=== PATIENT | male | born 1970 | race Caucasian/White ===

== ENCOUNTER 2017-03-29 19:52 | Emergency (ER) | payer OTHER ==
[2017-03-29] MEDS ORDERED: Amoxicillin 875 MG Tab PO ONE (20:15)
[2017-03-29] MEDS ORDERED: methylPREDNISolone Sodium Succinate 125 MG/2 ML SDV IM ONE (20:16)
--- NOTE | 2017-03-29 20:22 | EDM.PDOC ---
ED HPI GENERAL MEDICAL PROBLEM - General Chief Complaint: ENT Problem Stated Complaint: THROAT Time Seen by Provider: 03/29/17 20:12 Source of Information: Reports: Patient History Limitations: Reports: No Limitations - History of Present Illness INITIAL COMMENTS - FREE TEXT/NARRATIVE: present to ER with feeling of swelling to his uvula causing him to gag. Has had a irritated cough for the last week. woke up this morning with the symptoms. denies sore throat, fever, chills, sinus congestion, headache. denies eating any different foods or difficulty breathing or swallowing. Onset: Today Improves with: Reports: None Worsens with: Reports: None Associated Symptoms: Reports: No Other Symptoms Throat Pain Score (Numeric/FACES): 2 - Related Data Allergies Allergy/AdvReac Type Severity Reaction Status Date / Time No Known Allergies Allergy Verified 03/29/17 20:00 Home Meds: Home Meds Hydrochlorothiazide [Hydrochlorothiazide] 25 mg PO DAILY 09/04/15 [History] Levothyroxine [Synthroid] 50 mcg PO ACBREAKFAST 09/04/15 [History] Metoprolol Succinate [Toprol XL] 100 mg PO DAILY 09/04/15 [History] Omeprazole [Prilosec] 40 mg PO DAILY 09/04/15 [History] Rosuvastatin [Crestor] 20 mg PO DAILY 09/04/15 [History] metFORMIN [Glucophage] 1,000 mg BID 09/04/15 [History] ALPRAZolam [Xanax] 0.5 mg PO ASDIRECTED PRN 03/29/17 [History] DULoxetine [Cymbalta] 90 mg PO DAILY 03/29/17 [History] PARoxetine HCl [Paxil] 10 mg PO DAILY 03/29/17 [History] Past Medical History Cardiovascular History: Reports: High Cholesterol, Hypertension Psychiatric History: Reports: Anxiety, Depression Endocrine/Metabolic History: Reports: Hypothyroidism, Other (See Below) Other Endocrine/Metabolic History: prediabetic Social & Family History - Tobacco Use Smoking Status *Q: Never Smoker - Recreational Drug Use Recreational Drug Use: No ED ROS ENT - Review of Systems Review Of Systems: ROS reveals no pertinent complaints other than HPI. ED EXAM, ENT - Physical Exam Exam: See Below Exam Limited By: No Limitations General Appearance: Alert, WD/WN, No Apparent Distress Ears: Normal External Exam, Normal Canal, Normal TMs Nose: Normal Inspection, Normal Mucousa, No Blood Mouth/Throat: Pharyngeal Erythema, Uvular Edema Head: Atraumatic, Normocephalic Neck: Normal Inspection, Supple, Non-Tender Respiratory/Chest: No Respiratory Distress, Lungs Clear, Normal Breath Sounds Cardiovascular: Regular Rate, Rhythm Skin: Warm, Dry, No Rash Course - Vital Signs Last Recorded V/S: Last Vital Signs Temp 37.1 C 03/29/17 20:08 Pulse 87 03/29/17 20:08 Resp 16 03/29/17 20:08 BP 149/89 H 03/29/17 20:08 Pulse Ox 99 03/29/17 20:08 - Orders/Labs/Meds Orders: Active Orders 24 hr Category Date Time Status Amoxicillin [Amoxil] Med 03/29/17 20:15 Once 875 mg PO ONETIME ONE methylPREDNISolone Sod Succ [Solu-MEDROL] Med 03/29/17 20:16 Once 125 mg IM ONETIME ONE Departure - Departure Time of Disposition: 20:45 Disposition: Home, Self-Care 01 Condition: Good Clinical Impression: Uvular edema Acute pharyngitis Qualifiers: Pharyngitis/tonsillitis etiology: unspecified etiology Qualified Code(s): J02.9 - Acute pharyngitis, unspecified - Discharge Information Forms: ED Department Discharge - Problem List & Annotations (1) Uvular edema SNOMED Code(s): 789224230 Code(s): K13.79 - OTHER LESIONS OF ORAL MUCOSA Status: Acute Priority: Medium (2) Acute pharyngitis SNOMED Code(s): 689684764 Code(s): J02.9 - ACUTE PHARYNGITIS, UNSPECIFIED Status: Acute Priority: Medium Qualifiers: Pharyngitis/tonsillitis etiology: unspecified etiology Qualified Code(s): J02.9 - Acute pharyngitis, unspecified - My Orders Last 24 Hours: My Active Orders 03/29/17 20:15 Amoxicillin [Amoxil] 875 mg PO ONETIME ONE 03/29/17 20:16 methylPREDNISolone Sod Succ [Solu-MEDROL] 125 mg IM ONETIME ONE - Assessment/Plan Last 24 Hours: My Active Orders 03/29/17 20:15 Amoxicillin [Amoxil] 875 mg PO ONETIME ONE 03/29/17 20:16 methylPREDNISolone Sod Succ [Solu-MEDROL] 125 mg IM ONETIME ONE Plan: amoxicillin 875mg by mouth twice a day for 10 days. follow up with primary provider if no improvement in 2 days.
[2017-03-29 22:47] VITALS: BP 138/72
== END 2017-03-29 20:35 | disposition home or self-care (01) ==
LOC: SUPCPDRO 19:52 → VM.ED 19:52
DX: K13.79 Other lesions of oral mucosa (principal); J02.9 Acute pharyngitis, unspecified; I10 Essential (primary) hypertension; E78.00 Pure hypercholesterolemia, unspecified; F41.9 Anxiety disorder, unspecified; F32.9 Major depressive disorder, single episode, unspecified; E03.9 Hypothyroidism, unspecified; Z79.899 Other long term (current) drug therapy; Z79.84 Long term (current) use of oral hypoglycemic drugs
CPT/HCPCS: 96372; 99282; A9270; J2930

== ENCOUNTER 2017-08-30 16:18 | Emergency (ER) | payer OTHER ==
[2017-08-30 17:23] VITALS: BP 127/81
--- NOTE | 2017-08-30 18:09 | EDM.PDOC ---
ED HPI GENERAL MEDICAL PROBLEM - General Chief Complaint: Upper Extremity Injury/Pain Stated Complaint: caught finger in pully Time Seen by Provider: 08/30/17 16:20 Source of Information: Reports: Patient History Limitations: Reports: No Limitations - History of Present Illness INITIAL COMMENTS - FREE TEXT/NARRATIVE: Pt. states that he caught the 5th digit of his L hand in a madonna approx. 2 days ago. Pt. states that the discomfort is located in the distal portion of his little finger of the L hand. Denies injury elsewhere. Pt. states that he is not experiencing any numbness/tingling in the distal portion of the extremity. Onset Date: 08/28/17 Location: Reports: Upper Extremity, Left Quality: Reports: Dull, Throbbing Improves with: Reports: Rest Worsens with: Reports: Movement Left 5-Little finger Pain Score (Numeric/FACES): 3 - Related Data Allergies Allergy/AdvReac Type Severity Reaction Status Date / Time No Known Allergies Allergy Verified 08/30/17 17:17 Home Meds: Home Meds Hydrochlorothiazide [Hydrochlorothiazide] 25 mg PO DAILY 09/04/15 [History] Levothyroxine [Synthroid] 50 mcg PO ACBREAKFAST 09/04/15 [History] Metoprolol Succinate [Toprol XL] 100 mg PO DAILY 09/04/15 [History] Omeprazole [Prilosec] 40 mg PO DAILY 09/04/15 [History] Rosuvastatin [Crestor] 20 mg PO DAILY 09/04/15 [History] metFORMIN [Glucophage] 1,000 mg BID 09/04/15 [History] ALPRAZolam [Xanax] 0.5 mg PO ASDIRECTED PRN 03/29/17 [History] DULoxetine [Cymbalta] 90 mg PO DAILY 03/29/17 [History] PARoxetine HCl [Paxil] 10 mg PO DAILY 03/29/17 [History] Past Medical History Cardiovascular History: Reports: High Cholesterol, Hypertension Gastrointestinal History: Reports: GERD Psychiatric History: Reports: Anxiety, Depression Endocrine/Metabolic History: Reports: Diabetes, Type II, Hypothyroidism Other Endocrine/Metabolic History: prediabetic Social & Family History - Tobacco Use Smoking Status *Q: Never Smoker Packs/Tins Daily: 5 Used Tobacco, but Quit: Yes Month Tobacco Last Used: 5 years ago - Recreational Drug Use Recreational Drug Use: No Review of Systems - Review of Systems Review Of Systems: See Below Constitutional: Reports: No Symptoms Musculoskeletal: Reports: Other (pain to 5th digit of L hand) ED EXAM, GENERAL - Physical Exam Exam: See Below Exam Limited By: No Limitations General Appearance: Alert, WD/WN, No Apparent Distress Extremities: Other (ecchymosis to nailbed of affected finger. No obvious crepitus or deformity note.) Skin Exam: Warm, Dry, Intact, Normal Color, No Rash Course - Vital Signs Last Recorded V/S: Last Vital Signs Temp 36.0 C 08/30/17 16:20 Pulse 82 08/30/17 16:20 Resp 16 08/30/17 16:20 BP 127/81 08/30/17 16:20 Pulse Ox - Orders/Labs/Meds Orders: Active Orders 24 hr Category Date Time Status Fingers Fifth Digit Lt F4 [CR] Stat Exams 08/30/17 16:52 Taken Departure - Departure Time of Disposition: 18:00 Disposition: Home, Self-Care 01 Clinical Impression: Distal phalanx or phalanges, closed fracture - Discharge Information Instructions: Finger Fracture, [id number] Referrals: Ophelia Lugo DO [Primary Care Provider] - Forms: ED Department Discharge Additional Instructions: Wear splint for 4 weeks. Tylenol and ibuprofen for discomfort. Elevate hand to decrease swelling. You can take the splint off for icing the finger. - My Orders Last 24 Hours: My Active Orders 08/30/17 16:52 Fingers Fifth Digit Lt F4 [CR] Stat - Assessment/Plan Last 24 Hours: My Active Orders 08/30/17 16:52 Fingers Fifth Digit Lt F4 [CR] Stat
== END 2017-08-30 18:01 | disposition home or self-care (01) ==
LOC: VM.ED 16:18
DX: S62.637A Displaced fracture of distal phalanx of left little finger, initial encounter for closed fracture (principal); I10 Essential (primary) hypertension; E78.00 Pure hypercholesterolemia, unspecified; K21.9 Gastro-esophageal reflux disease without esophagitis; F32.9 Major depressive disorder, single episode, unspecified; E11.9 Type 2 diabetes mellitus without complications; E03.9 Hypothyroidism, unspecified; Z87.891 Personal history of nicotine dependence; Z79.899 Other long term (current) drug therapy; Z79.84 Long term (current) use of oral hypoglycemic drugs; W23.0XXA Caught, crushed, jammed, or pinched between moving objects, initial encounter
CPT/HCPCS: 73140-F4; 99283

== ENCOUNTER 2019-01-03 21:07 | Emergency (ER) | payer OTHER ==
[2019-01-03] MEDS ORDERED: Take Home: Acetaminophen/HYDROcodone 325-5 MG, 5 Tab Pack PO ONE (21:29)
[2019-01-03] MEDS ORDERED: Take Home: Amoxicillin/Clavulanate K 875-125 MG Tab, 2 Tab Pack PO ONE (21:29)
[2019-01-03 21:31] VITALS: BP 172/92
--- NOTE | 2019-01-04 01:30 | EDM.PDOC ---
ED HPI GENERAL MEDICAL PROBLEM - General Chief Complaint: General Stated Complaint: FACIAL SWELLING Time Seen by Provider: 01/03/19 21:19 Source of Information: Reports: Patient History Limitations: Reports: No Limitations - History of Present Illness INITIAL COMMENTS - FREE TEXT/NARRATIVE: Pt. presents to ER with complaints of dental pain. Pt. states that he started experiencing the pain about 24 hours ago. Denies any fever or chills. He has a history of tooth decay. Denies any significant facial swelling. No difficulty with swallowing or managing his secretions. Pt. is scheduled to see a dentist on Wednesday. 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 Right Upper Jaw / Teeth Pain Score (Numeric/FACES): 9 - Related Data Allergies Allergy/AdvReac Type Severity Reaction Status Date / Time No Known Allergies Allergy Verified 01/03/19 21:24 Home Meds: Home Meds Hydrochlorothiazide 25 mg PO DAILY 09/04/15 [History] Levothyroxine [Synthroid] 75 mcg PO ACBREAKFAST 09/04/15 [History] Metoprolol Succinate [Toprol XL] 100 mg PO DAILY 09/04/15 [History] Rosuvastatin [Crestor] 20 mg PO DAILY 09/04/15 [History] metFORMIN [Glucophage] 500 mg DAILY 09/04/15 [History] ALPRAZolam [Xanax] 0.5 mg PO ASDIRECTED PRN 03/29/17 [History] DULoxetine [Cymbalta] 90 mg PO DAILY 03/29/17 [History] Pantoprazole [ProTONIX] 40 mg PO DAILY 01/03/19 [History] Saxagliptin HCl [Onglyza] 5 mg PO DAILY 01/03/19 [History] Past Medical History HEENT History: Reports: Impaired Vision Cardiovascular History: Reports: High Cholesterol, Hypertension Gastrointestinal History: Reports: GERD Psychiatric History: Reports: Anxiety, Depression Endocrine/Metabolic History: Reports: Diabetes, Type II, Hypothyroidism Other Endocrine/Metabolic History: prediabetic Social & Family History - Tobacco Use Smoking Status *Q: Never Smoker - Recreational Drug Use Recreational Drug Use: No ED ROS GENERAL - Review of Systems Review Of Systems: See Below Constitutional: Reports: No Symptoms HEENT: Reports: Dental Pain Respiratory: Reports: No Symptoms Cardiovascular: Reports: No Symptoms Endocrine: Reports: No Symptoms GI/Abdominal: Reports: No Symptoms : Reports: No Symptoms Musculoskeletal: Reports: No Symptoms Skin: Reports: No Symptoms Neurological: Reports: No Symptoms Psychiatric: Reports: No Symptoms Hematologic/Lymphatic: Reports: No Symptoms Immunologic: Reports: No Symptoms ED EXAM, GENERAL - Physical Exam Exam: See Below Exam Limited By: No Limitations General Appearance: Alert, WD/WN, No Apparent Distress Eye Exam: Bilateral Eye: EOMI, Normal Inspection, Nystagmus, PERRL Ears: Normal External Exam, Normal Canal, Hearing Grossly Normal, Normal TMs Nose: Normal Inspection, Normal Mucosa, No Blood Throat/Mouth: Other (fractured R upper canine, appears to be old with surrounding cellulitis of the gums. No obvious abscess formation. ) Neck: Normal Inspection, Supple, Non-Tender, Full Range of Motion Peripheral Pulses: 4+: Radial (L) Neurological: Alert, Oriented, CN II-XII Intact, Normal Cognition, Normal Gait, Normal Reflexes, No Motor/Sensory Deficits Psychiatric: Normal Affect, Normal Mood Skin Exam: Warm, Dry, Intact, Normal Color, No Rash Course - Vital Signs Last Recorded V/S: Last Vital Signs Temp 35.8 C 01/03/19 21:30 Pulse 83 01/03/19 21:30 Resp 14 01/03/19 21:30 BP 172/92 H 01/03/19 21:30 Pulse Ox 97 01/03/19 21:30 - Orders/Labs/Meds Meds: Medications Discontinued Medications Generic Name Dose Route Start Last Admin Trade Name Raheelq PRN Reason Stop Dose Admin Hydrocodone Bitart/Acetaminophen 1 packet 01/03/19 21:29 01/03/19 21:36 Take Home: Acetam/Hydrocodon 325-5 Mg, 5 Pack PO 01/03/19 21:30 1 packet ONETIME ONE Administration Amoxicillin/Clavulanate Potassium 1 packet 01/03/19 21:29 01/03/19 21:36 Take Home: Amox/Clavulanate 875-12, 2 Tab Pac PO 01/03/19 21:30 1 packet ONETIME ONE Administration Departure - Departure Time of Disposition: 21:41 Disposition: Home, Self-Care 01 Clinical Impression: Dental caries - Discharge Information Instructions: Dental Abscess Referrals: Ophelia Lugo DO [Primary Care Provider] - Forms: ED Department Discharge Additional Instructions: Augmentin 875mg 1 twice daily for 10 days. Finish full course of antibiotics Ibuprofen 200mg 3 tabs every 6 hours as needed for pain [place] 5/325mg 1 tab every 6 hours as needed for pain Follow-up with dentist Wednesday Return to ER if you have severe facial or neck swelling, racing heart, vision problems. - Assessment/Plan Plan: Augmentin 875mg 1 twice daily for 10 days. Finish full course of antibiotics Ibuprofen 200mg 3 tabs every 6 hours as needed for pain [place] 5/325mg 1 tab every 6 hours as needed for pain Follow-up with dentist Wednesday Return to ER if you have severe facial or neck swelling, racing heart, vision problems.
== END 2019-01-03 21:41 | disposition home or self-care (01) ==
LOC: VM.ED 21:07 → SUPCPDRO 21:07 → VM.ED 21:41
DX: K02.9 Dental caries, unspecified (principal); E78.00 Pure hypercholesterolemia, unspecified; I10 Essential (primary) hypertension; K21.9 Gastro-esophageal reflux disease without esophagitis; E11.9 Type 2 diabetes mellitus without complications; E03.9 Hypothyroidism, unspecified; F41.9 Anxiety disorder, unspecified; F32.9 Major depressive disorder, single episode, unspecified; Z79.899 Other long term (current) drug therapy; Z79.84 Long term (current) use of oral hypoglycemic drugs
CPT/HCPCS: 99282; A9270

== ENCOUNTER 2021-12-08 16:44 | Emergency (ER) | payer BC, OTHER ==
[2021-12-08] MEDS ORDERED: ceFAZolin 1 GM Vial IVPUSH ONE (16:47)
[2021-12-08] MEDS ORDERED: Acetaminophen/HYDROcodone 325-10 MG Tab PO ONE (16:47)
[2021-12-08] MEDS ORDERED: Lidocaine 1% 5 ML VIAL INJECT ONE (17:23)
[2021-12-08 19:29] VITALS: BP 152/99; PULSE 72
== END 2021-12-08 17:55 | disposition home or self-care (01) ==
LOC: VM.ED 16:44
DX: S61.012A Laceration without foreign body of left thumb without damage to nail, initial encounter (principal); E78.00 Pure hypercholesterolemia, unspecified; I10 Essential (primary) hypertension; K21.9 Gastro-esophageal reflux disease without esophagitis; E11.9 Type 2 diabetes mellitus without complications; E03.9 Hypothyroidism, unspecified; Z79.899 Other long term (current) drug therapy; W27.0XXA Contact with workbench tool, initial encounter; Y99.0 Civilian activity done for income or pay
CPT/HCPCS: 29130; 96374; 99283-25; A9270-GY; J0690

== ENCOUNTER 2022-05-06 19:45 | Emergency (ER) | payer OTHER ==
[2022-05-06] MEDS ORDERED: Sodium Chloride 0.9% 10 ML Syringe FLUSH PRN (20:28)
[2022-05-06] MEDS ORDERED: Labetalol 20 MG/4 ML Syringe IVPUSH ONE (20:28)
[2022-05-06] MEDS ORDERED: Sodium Chloride 0.9% 1,000 ML IV SCH (20:30)
[2022-05-06 20:59] LABS: CHLORIDE,CL 97 mmol/L (98-107); SODIUM,NA 136 mmol/L (136-145)
[2022-05-06 21:01] LABS: ANION GAP 17.3 mmol/L (5-15); ESTIMATED GFR 57 mL/min (>=60)
[2022-05-07 04:33] VITALS: PULSE 118
[2022-05-07 04:35] VITALS: BP 150/93
== END 2022-05-06 22:04 | disposition home or self-care (01) ==
LOC: VM.ED 19:45
DX: I16.9 Hypertensive crisis, unspecified (principal); I10 Essential (primary) hypertension; E78.00 Pure hypercholesterolemia, unspecified; K21.9 Gastro-esophageal reflux disease without esophagitis; E03.9 Hypothyroidism, unspecified; E11.9 Type 2 diabetes mellitus without complications; Z79.899 Other long term (current) drug therapy; Z79.84 Long term (current) use of oral hypoglycemic drugs
CPT/HCPCS: 36415; 71045; 80053; 85025; 93005; 93010; 96361; 96374; 99284; 99284-25; J3490; J7030

== ENCOUNTER 2023-09-12 06:20 | Emergency (ER) | payer OTHER ==
[2023-09-12 06:43] VITALS: BP 176/97; PULSE 75
[2023-09-12] MEDS ORDERED: Azithromycin 250 MG Tab PO ONE (07:05)
[2023-09-12] MEDS ORDERED: predniSONE 20 MG Tab PO ONE (07:05)
== END 2023-09-12 07:28 | disposition home or self-care (01) ==
LOC: VM.ED 06:20
DX: J20.8 Acute bronchitis due to other specified organisms (principal); J01.90 Acute sinusitis, unspecified
CPT/HCPCS: 99283; 99284; A9270; J7512

== ENCOUNTER 2025-03-17 08:11 | Emergency (ER) | payer OTHER, BC ==
[2025-03-17 08:24] VITALS: BP 145/107; PULSE 71
== END 2025-03-17 09:33 | disposition home or self-care (01) ==
LOC: VM.ED 08:11
DX: K02.9 Dental caries, unspecified (principal); E78.00 Pure hypercholesterolemia, unspecified; I10 Essential (primary) hypertension; E11.9 Type 2 diabetes mellitus without complications; E03.9 Hypothyroidism, unspecified; F17.210 Nicotine dependence, cigarettes, uncomplicated; Z79.890 Hormone replacement therapy; Z79.899 Other long term (current) drug therapy; Z79.84 Long term (current) use of oral hypoglycemic drugs
CPT/HCPCS: 64400; 99282; 99282-25; J2003